=== PATIENT | male | born 1970 | race Two or more races ===

== ENCOUNTER 2020-03-28 09:54 | Emergency (ER) | payer OTHER ==
[2020-03-28 11:12] VITALS: BP 111/68
== END 2020-03-28 11:30 | disposition home or self-care (01) ==
LOC: ED 11:24
DX: J06.9 Acute upper respiratory infection, unspecified (principal); R07.9 Chest pain, unspecified
CPT/HCPCS: 71045; 87635; 99283; 99284

== ENCOUNTER 2020-04-02 10:58 | Emergency (ER) | payer OTHER ==
[~2020-04-02] VITALS: Ht 170.2 cm; Wt 79.1 kg
[2020-04-02 11:01] VITALS: BP 135/64
--- NOTE | 2020-04-02 11:42 | NUR ---
PT BIB SON VIA POV. PER PT NEEDS COVID SWAB, LAST SWAB WAS MONDAY & LAB CANCELLED D/T LEAKED IN TRANSIT, PERSISTENT DRY COUGH. PT ON CONT PULSE OX, RESTING IN [facility], NAD NOTED AT THIS TIME, WILL CONTINUE TO MONITOR.
== END 2020-04-02 12:08 | disposition home or self-care (01) ==
LOC: ED 11:30
DX: U07.1 COVID-19 (principal); R06.00 Dyspnea, unspecified; R07.89 Other chest pain
CPT/HCPCS: 87635; 99283